=== PATIENT | female | born 1970 | race Two or more races ===

== ENCOUNTER 2021-12-09 10:02 | Outpatient (REF) | payer BC, SELFPAY ==
[2021-12-09 11:56] LABS: MANUAL DIFF FLAG NO
[2021-12-09 13:13] LABS: Basophils Absolute Auto 0.1 X10*3/uL (0.0-0.2); Basophils Percent Auto 0.7 % (0-2); Eosinophils Absolute Auto 0.3 X10*3/uL (0.0-0.4); Eosinophils Percent Auto 4.7 % (0-4); Hematocrit 39.9 % (37.0-47.0); Hemoglobin 13.3 g/dl (12.0-16.0); Imm Gran Abs Auto 0.04 X10*3/uL (0.00-0.03); Imm Gran Pct Auto 0.5 % (0.0-0.4); Lymphocytes Absolute Auto 2.6 X10*3/uL (1.2-4.9); Lymphocytes Percent Auto 35.4 % (20-40); Mean Corpuscular HGB Conc 33.3 g/dl (31.0-35.0); Mean Corpuscular Hemoglobin 31.3 pg (27.0-33.0); Mean Corpuscular Volume 93.9 fL (80.0-98.0); Mean Platelet Volume 9.6 fL (9.4-12.3); Monocytes Absolute Auto 0.7 X10*3/uL (0.1-1.2); Monocytes Percent Auto 9.5 % (2-11); Neutrophils Absolute Auto 3.6 x10*3/uL (2.0-8.3); Neutrophils Percent Auto 49.2 % (45-73); Platelet Count 386 X10*3/uL (160-400); Red Blood Count 4.25 X10*6/uL (4.20-5.50); Red Cell Distribution Width 11.9 % (11.0-16.0); White Blood Count 7.3 X10*3/uL (4.8-10.8)
[2021-12-09 13:43] LABS: Creatinine Urine 56.06 mg/dL; Microalbumin Urine < 5.0 mg/L
[2021-12-09 13:57] LABS: Alanine Aminotransferase 15 U/L (0-31); Albumin Level 4.3 g/dL (3.5-5.0); Alkaline Phosphatase 103 U/L (39-117); Anion Gap 15 (12-20); Aspartate Amino Transferase 14 U/L (5-31); Bilirubin Total 0.6 mg/dL (0.0-1.0); Blood Urea Nitrogen 16 mg/dL (9-16); C Reactive Protein 0.21 mg/dL (< or = 0.50); Calcium 10.3 mg/dL (8.4-10.2); Carbon Dioxide 26 mmol/L (22-29); Chloride 103 mmol/L (96-108); Estimated Glomerular Filt Rate > 60; Glucose Random 82 mg/dL (60-115); Potassium 4.7 mmol/L (3.3-5.1); Sodium 139 mmol/L (135-145); Total Protein 7.6 g/dL (6.5-8.0)
[2021-12-09 14:13] LABS: Erythrocyte Sedimentation Rate 14 MM/HR (0-20)
[2021-12-11 12:41] LABS: Anti DNA DS Antibody 2 IU/mL; SM/Ribonucleoprotein Ab <1.0 NEG AI (<1.0 NEG); Smith Protein <1.0 NEG AI (<1.0 NEG)
== END 2021-12-09 10:03 | disposition home or self-care (01) ==
LOC: HO.LAB 10:02
PROVIDERS: PCP Internal Medicine; Visit Provider Internal Medicine Rheumatology
DX: M25.50 Pain in unspecified joint (principal); R76.8 Other specified abnormal immunological findings in serum
CPT/HCPCS: 36415; 80053; 82043; 85025; 85652; 86140; 86225; 86235

== ENCOUNTER 2022-01-25 14:38 | Outpatient (REF) | payer BC, SELFPAY | END 2022-01-25 14:39 | disposition home or self-care (01) | LOC: HO.LAB 14:38 | PROVIDERS: PCP Internal Medicine; Visit Provider Otolaryngology | DX: Z13.89 Encounter for screening for other disorder (principal) | CPT/HCPCS: 36415 ==

== ENCOUNTER 2022-04-08 13:08 | Outpatient (REF) | payer BC, SELFPAY | END 2022-04-08 13:09 | disposition home or self-care (01) | LOC: HO.LAB 13:08 | PROVIDERS: PCP Internal Medicine; Visit Provider Otolaryngology | DX: Z13.89 Encounter for screening for other disorder (principal) ==

== ENCOUNTER 2023-05-19 09:58 | Outpatient (AMB) | payer BC, SELFPAY ==
--- NOTE | 2023-05-19 10:00 | A.OFFVIS_ITS ---
Intake Vital Signs 05/19/23 10:01 Height 5 ft 10 in Weight 195 lb 12.328 oz BMI 28.1 BP 130/82 Blood Pressure Location Lt brachial Position Sitting Pulse 72 Pulse Source Pulse Oximeter Temp 97 F Temp Source Skin Pulse Oximetry (%) 97 Oxygen Delivery Method Room Air Intake Visit Reasons: Joint Pain Intake Note: Patient presents today to follow up on joint pain. Would like to update labs to confirm autoimmune disease and vit D levels. Would also like a referral to massage therapy. Did not do PT ordered at last visit. Template Reproduction Technician Required: No Accompanied by: Self / Same As Patient Allergies acetaminophen [From Tylenol] Allergy (Intermediate, Verified 05/19/23 10:17) HIVES aspirin Allergy (Intermediate, Verified 05/19/23 10:17) Swelling tramadol Allergy (Intermediate, Verified 05/19/23 10:17) ITCHY Medication List - Last Reconciled 05/19/23 by Fredy Mcneil MD arm brace (Elbow Strap) wear when using hand cholecalciferol (vitamin D3) 50 mcg PO DAILY famotidine 40 mg PO DAILY metronidazole 0.75% 1 appl topical DAILY HPI HPI Comments History of Present Illness Details The patient returns for evaluation of her positive LETTY. I had seen her over a year ago with widespread pains and positive LETTY. I could not find any signs of an active inflammatory process and other serologies were negative. In the meantime she continues to have episodic pains involving many of the muscles and joints. These include pains in the neck, shoulders, wrists, hands, lower back, hips, and knees. She remains relatively active working full-time at the [employer]. She is on her feet there often and she also takes walks on weekends. The walks make her feel more fatigued and her lower back pain continues. She had some significant lateral epicondylar tenderness but that improved with the splint at the elbow. She did not make it to physical therapy. She does not take anything for these pains. In the past, perhaps 20 years ago, she had a severe reaction to aspirin and she claims also to acetaminophen. Since then she has avoided the acetaminophen and any NSAID use.. She did have a allergy evaluation but no further information was offered since then. She had been told in the past she had a low vitamin-D level so she wants that checked again. She is on [id number] supplementation with vitamin-D, she believe 2000 units daily. [facility] Medical History (Updated 05/19/23 @ 10:48 by Fredy Mcneil MD) Knee pain, right Pain, joint, knee, left Lateral epicondylitis, right elbow Acne rosacea Polyarthralgia GERD (gastroesophageal reflux disease) Hyperlipemia Positive LETTY (antinuclear antibody) Social History Household Members: Spouse and Family Housing: House Are you a primary rn wound care to a significant other at home: No Do you presently have visiting nurse or other home services: No 75 years or older and lives alone: No Alcohol intake: current Alcohol type: wine Patient Tobacco Use Status: Former Tobacco user e-Cigarette/Vaping Use: Never Used service: No Current occupational status: employed 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 Card Details: Negative chest pain, edema and syncope Resp Details: Negative for SOB, cough and wheezing GI Details: Negative indigestion/heartburn, nausea, abdominal pain, bowel changes, diarrhea, constipation and bloody stool. Skin/Breast Details: She uses metronidazole cream for some rosacea. Negative for itching, hives, Raynaud's symptoms, sun sensitivity, and skin cancer Neuro Details: Negative for epilepsy, palsy, stroke, changes in speech, tingling and weakness Psych Details: Negative for anxiety, depression and stress Endo Details: Negative for polyuria and polydypsia Chance/Lymph Details: Negative for excessive bruising or bleeding. Physical Exam Vital Signs: Last Vital Signs Temp 97 F 05/19/23 10:01 Pulse 72 05/19/23 10:01 BP 130/82 05/19/23 10:01 Pulse Ox 97 05/19/23 10:01 Oxygen Delivery Method Room Air 05/19/23 10:01 BMI result Body Mass Index 28.1 APPEARANCE: Patient in no acute distress EYES no redness, pupils equal and reactive to light, eyelids normal EARS: External ear normal, canal clear and tympanic membrane normal. NOSE/SINUS: Airflow through both nares, no nasal discharge, no bleeding THROAT: Oral mucosa moist, no ulcerations NECK: No thyromegaly or masses, no adenopathy, trachea midline. HEART: Regulrar rhythm, S1-S2 heard, no murmurs, rubs or gallops. LUNG: Clear to percussion and auscultation ABD: Normal bowel sounds, no organomegaly, masses or tenderness. EXTREMITIES: No edema, no calf tenderness, normal peripheral pulses. NEURO: Oriented and alert x3. No focal weakness. Reflexes symmetric. Gait normal. SKIN: slight redness, comdones over the cheeks consistent with rosacea. JOINT EXAM:.?? Cervical Spine:.? Full range of motion without pain; no tenderness. Thoracic Spine:.? No scoliosis.? No tenderness on palpation. Lumbar Spine:.? Alignment normal.? Full range of motion with slight pain at the extremes of flexion. No tenderness. Chest Wall:.? No tenderness, swelling, increased warmth or erythema. Hands:.? Normal pain-free range of motion without tenderness, swelling, increased warmth or erythema. 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 Wrists:.? Normal pain-free range of motion without tenderness, swelling, increased warmth or erythema. Elbows:. Normal pain-free range of motion without tenderness, swelling, increased warmth or erythema. Shoulders:.?? Full range of motion without pain. No tenderness, weakness, swelling, increased warmth or erythema. Hips:.? Full range of motion without pain. Hip bursa:.? No tenderness. Knees:.?? Normal pain-free range of motion without tenderness, swelling, increased warmth or erythema.? There is no effusion or crepitation Ankles:.? Normal pain-free range of motion without tenderness, swelling, increased warmth or erythema. Feet:? Normal pain-free range of motion without tenderness, swelling, increased warmth or erythema. Tender points:? mild tenderness to digital palpation at the right trapezius, second rib, left hip bursa, both knees ? 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 Micro albuminuria negative. Code(s): R76.8 - Other specified abnormal immunological findings in serum Plan She still has no signs of inflammatory arthropathy in spite of the positive LETTY. Previous workup with more specific antibodies and inflammatory markers did not reveal any signs to suggest she would develop inflammatory disease. We will recheck some of those markers. She asked me what might have been causing her symptoms. She does have a few tender spots so there is a possibility she may have some element of fibromyalgia. I told her that she should try to remain active. I would not try to treat this with any medications for now as she is more likely to get side effects than benefits. We will get back to her with the results of her studies. I will check the vitamin-D level as it was low in the past at [place]. Orders: Orders Vitamin D 25-OH (D2 and D3) Today E55.9 - Vitamin D deficiency, unspecified Complement C4 Today R76.8 - Other specified abnormal immunological findings in serum Complete Blood Count Auto Diff Today R76.8 - Other specified abnormal immunological findings in serum Comprehensive Met. Panel Today R76.8 - Other specified abnormal immunological findings in serum Protein Creatinine Ratio, Ur Today R76.8 - Other specified abnormal immunological findings in serum Anti DNA DS Antibody Today R76.8 - Other specified abnormal immunological findings in serum Erythrocyte Sedimentation Rate Today R76.8 - Other specified abnormal immunological findings in serum Complement C3 Today R76.8 - Other specified abnormal immunological findings in serum C Reactive Protein Today R76.8 - Other specified abnormal immunological findings in serum Coding Level of Care Code Est Pt Level 3 (85124) Diagnoses Polyarthralgia M25.50 Vitamin D deficiency E55.9 Positive LETTY (antinuclear antibody) R76.8
[2023-05-19 10:01] VITALS: BP 130/82; PULSE 72; TEMP 36.1; O2SAT 97; BMI 28.1
== END 2023-05-19 10:52 | disposition home or self-care (01) ==
PROVIDERS: PCP Internal Medicine; Visit Provider Internal Medicine Rheumatology
DX: M25.50 Pain in unspecified joint (principal); E55.9 Vitamin D deficiency, unspecified; R76.8 Other specified abnormal immunological findings in serum
CPT/HCPCS: 99213

== ENCOUNTER → 2023-05-19 09:58 | Outpatient (BNVA) | payer BC, SELFPAY | PROVIDERS: PCP Internal Medicine; Visit Provider Internal Medicine Rheumatology ==

== ENCOUNTER 2023-05-23 08:36 | Outpatient (REF) | payer BC, SELFPAY ==
[2023-05-23 10:51] LABS: MANUAL DIFF FLAG NO
[2023-05-23 10:54] LABS: Basophils Absolute Auto 0.1 X10*3/uL (0.0-0.2); Basophils Percent Auto 0.9 % (0-2); Eosinophils Absolute Auto 0.4 X10*3/uL (0.0-0.4); Eosinophils Percent Auto 5.5 % (0-4); Hematocrit 39.9 % (37.0-47.0); Hemoglobin 13.2 g/dl (12.0-16.0); Imm Gran Abs Auto 0.01 X10*3/uL (0.00-0.03); Imm Gran Pct Auto 0.1 % (0.0-0.4); Lymphocytes Absolute Auto 2.3 X10*3/uL (1.2-4.9); Lymphocytes Percent Auto 33.8 % (20-40); Mean Corpuscular HGB Conc 33.1 g/dl (31.0-35.0); Mean Corpuscular Hemoglobin 30.8 pg (27.0-33.0); Mean Platelet Volume 9.5 fL (9.4-12.3); Monocytes Absolute Auto 0.6 X10*3/uL (0.1-1.2); Monocytes Percent Auto 8.5 % (2-11); Neutrophils Absolute Auto 3.4 x10*3/uL (2.0-8.3); Neutrophils Percent Auto 51.2 % (45-73); Platelet Count 323 X10*3/uL (160-400); Red Blood Count 4.29 X10*6/uL (4.20-5.50); Red Cell Distribution Width 12.2 % (11.0-16.0); White Blood Count 6.7 X10*3/uL (4.8-10.8)
[2023-05-23 11:33] LABS: Erythrocyte Sedimentation Rate 12 MM/HR (0-20)
[2023-05-23 11:40] LABS: Alanine Aminotransferase 15 U/L (0-31); Albumin Level 4.3 g/dL (3.5-5.0); Alkaline Phosphatase 127 U/L (39-117); Anion Gap 13 (12-20); Aspartate Amino Transferase 14 U/L (5-31); Bilirubin Total 1.1 mg/dL (0.0-1.0); Blood Urea Nitrogen 17 mg/dL (9-16); C Reactive Protein 0.24 mg/dL (< or = 0.50); Calcium 9.9 mg/dL (8.4-10.2); Carbon Dioxide 26 mmol/L (22-29); Chloride 104 mmol/L (96-108); Estimated Glomerular Filt Rate > 60; Glucose Random 111 mg/dL (60-115); Potassium 4.2 mmol/L (3.3-5.1); Sodium 139 mmol/L (135-145); Total Protein 7.7 g/dL (6.5-8.0)
[2023-05-23 11:48] LABS: Creatinine Urine 71.64 mg/dL; Total Protein Urine Random < 7 mg/dL (<12)
[2023-05-24 12:48] LABS: Complement C3 135 mg/dL (83-193)
[2023-05-26 22:39] LABS: Anti DNA DS Antibody 1 IU/mL
[2023-05-28 10:49] LABS: Vitamin D 25-OH, D2 <4 ng/mL; Vitamin D 25-OH, D3 18 ng/mL; Vitamin D 25-OH, Total 18 ng/mL (30-100)
== END 2023-05-23 08:37 | disposition home or self-care (01) ==
LOC: HO.10HDL 08:36
PROVIDERS: Visit Provider Internal Medicine Rheumatology
DX: E55.9 Vitamin D deficiency, unspecified (principal); R76.8 Other specified abnormal immunological findings in serum
CPT/HCPCS: 36415; 80053; 82306; 82570; 84156; 85025; 85652; 86140; 86160; 86225